=== PATIENT | male | born 1980 | race Caucasian/White ===

== ENCOUNTER 2021-04-18 01:39 | Emergency (ER) | payer SELFPAY ==
[2021-04-18 02:59] LABS: BASOPHIL 0.3 % (0-2); EOSINOPHIL 3.5 % (0-5); HCT 39.9 % (42.0-52.0); HGB 12.9 g/dl (13.2-18.0); LYMPHOCYTE 44.1 % (15-48); MCH 31.2 pg (25.0-31.0); MCHC 32.3 g/dL (32.0-36.0); MCV 96.6 fL (78.0-100.0); MONOCYTE 9.1 % (0-12); NEUTROPHIL 42.2 % (41-80); NRBC 0; PLT 281 K/uL (150-400); RBC 4.13 M/uL (4.70-6.00); RDW 13.2 % (11.5-14.0); WBC 6.4 K/uL (4.0-10.5)
[2021-04-18 03:29] LABS: ALBUMIN 3.8 g/dL (3.4-5.0); BILIRUBIN - TOTAL 0.3 mg/dL (0.2-1.0); BUN/CREAT RATIO (CALC) 14.3 RATIO; CREATININE 1.12 mg/dL (0.67-1.17); GLOBULIN (CALCULATION) 3.1 g/dL; POTASSIUM 3.8 mmol/L (3.5-5.1); TOTAL PROTEIN 6.9 g/dL (6.4-8.2)
== END 2021-04-18 04:27 | disposition home or self-care (01) ==
LOC: FER 01:39
PROVIDERS: Emergency Medicine
DX: R07.89 Other chest pain (principal); F17.290 Nicotine dependence, other tobacco product, uncomplicated; Z20.822 Contact with and (suspected) exposure to COVID-19; Z88.5 Allergy status to narcotic agent
CPT/HCPCS: 36415; 71045; 80053; 84484; 85025; 93005; U0002

== ENCOUNTER 2022-02-21 13:23 | Emergency (ER) | payer OTHER | END 2022-02-21 15:08 | disposition home or self-care (01) | LOC: FER 13:23 | DX: L02.415 Cutaneous abscess of right lower limb (principal); E11.9 Type 2 diabetes mellitus without complications; Z88.6 Allergy status to analgesic agent; Z28.310 Unvaccinated for COVID-19 ==